=== PATIENT | female | born 1965 | race Caucasian/White ===

== ENCOUNTER → 2018-08-23 07:13 | Outpatient (CLI) | payer OTHER, SELFPAY ==
[2018-08-23 08:38] LABS: Add Manual Diff / Slide Review NO; Basophils Percent Auto 2.1 % (0-2); Eosinophils Percent Auto 4.8 % (2-4); Hematocrit 41.7 % (36-46); Hemoglobin 14.4 g/dL (12.0-16.0); Lymphocytes Percent Auto 27.4 % (25-40); Mean Corpuscular HGB Conc 34.6 % (30-36); Mean Corpuscular Hemoglobin 32.7 PG (26-34); Mean Corpuscular Volume 94.6 fL (80-100); Neutrophils Absolute Auto 2100 /uL (3000-5900); Neutrophils Percent Auto 55.7 % (50-75); Platelet Count 171 X10^3/uL (150-400); Red Blood Cell Count 4.41 X10^6/uL (4.0-5.2); Red Cell Distribution Width 11.9 % (11.6-14.8); White Blood Cell Count 3.7 X10^3/uL (4.5-11.0)
[2018-08-23 09:13] LABS: Alanine Aminotransferase 29 IU/L (9-52); Albumin 4.4 g/dL (3.5-5.0); Albumin Globulin Ratio 1.6 (1.0-2.8); Alkaline Phosphatase 80 U/L (38-126); Aspartate Aminotransferase 20 IU/L (14-36); BUN Creatinine Ratio 21.3 (6-22); Bilirubin Total 0.5 mg/dL (0.2-1.3); Blood Urea Nitrogen 17 mg/dL (7-17); Calcium 9.5 mg/dL (8.4-10.2); Carbon Dioxide 29 mmol/L (22-32); Chloride 100 mmol/L (98-107); Cholesterol 190 mg/dL (140-199); Estimated Glomerular Filt Rate > 60.0 mL/min (>60); Globulin 2.8 g/dL (1.7-4.1); Glucose 89 mg/dL (70-100); HDL Cholesterol 48 mg/dL (40-60); HEMOLYSIS < 15 (0-50); LDL Cholesterol Calculated 109 mg/dL (<100); Potassium 3.9 mmol/L (3.4-5.1); Sodium 144 mmol/L (137-145); Total Protein 7.2 g/dL (6.3-8.2); Triglycerides 164 mg/dL (35-150)
[2018-08-23 09:38] LABS: Thyroid Stimulating Hormone 1.38 uIU/mL (0.47-4.68)
== END ==
PROVIDERS: PCP Internal Medicine; Visit Provider Internal Medicine
DX: D70.9 Neutropenia, unspecified (principal); E78.5 Hyperlipidemia, unspecified
CPT/HCPCS: 36415; 80053; 80061; 84443; 85025

== ENCOUNTER → 2019-08-24 17:16 | Outpatient (CLI) | payer OTHER, SELFPAY ==
--- NOTE | 2019-08-24 | DI.MG.S_ITS ---
BILATERAL DIGITAL SCREENING MAMMOGRAM 3D/2D WITH CAD: 08/24/2019 CLINICAL: Routine screening. Comparison is made to exams dated: 05/15/2016 mammogram, 05/11/2016 mammogram, and 12/28/2013 mammogram - [facility]. The tissue of both breasts is heterogeneously dense. This may lower the sensitivity of mammography. Current study was also evaluated with a Computer Aided Detection (CAD) system. There is an oval high density mass with a circumscribed margin in the left breast posterior depth superior region seen on the mediolateral oblique view only. No other significant masses, calcifications, or other findings are seen in either breast. IMPRESSION: INCOMPLETE: NEEDS ADDITIONAL IMAGING EVALUATION The oval high density mass in the left breast is indeterminate. Mediolateral and spot compression views as well as additional views with possible ultrasound are recommended. This exam was interpreted at Station ID: [id number]. NOTE: For mammograms, a report in lay terms will be sent to the patient. Approximately 15% of breast malignancies will not be visualized mammographically. In the management of a palpable breast mass, a negative mammogram must not discourage biopsy of a clinically suspicious lesion. Electronically Signed By: Darryl amor/kimberly:08/25/2019 07:38:16 letter sent: Additional Imaging Needed ACR BI-RADS Category 0: Incomplete [id number]
== END ==
PROVIDERS: PCP Internal Medicine; Visit Provider Internal Medicine
DX: Z12.31 Encounter for screening mammogram for malignant neoplasm of breast (principal)
CPT/HCPCS: 77063; 77067

== ENCOUNTER → 2019-10-02 09:35 | Outpatient (CLI) | payer OTHER, SELFPAY ==
--- NOTE | 2019-10-02 | DI.MG.S_ITS ---
UNILATERAL LEFT DIGITAL DIAGNOSTIC MAMMOGRAM 3D/2D WITH ADDITIONAL VIEWS: 10/02/2019 CLINICAL: Additional evaluation requested from prior study. Comparison is made to exams dated: 08/24/2019 mammogram, 05/15/2016 mammogram, and 05/11/2016 mammogram - [facility]. The tissue of left breast is heterogeneously dense. This may lower the sensitivity of mammography. There is a 2.4 cm oval equal density asymmetry with a circumscribed margin in the left breast posterior depth superior region seen on the mediolateral oblique view only. No other significant masses or calcifications are seen in the breast. IMPRESSION: INCOMPLETE: NEEDS ADDITIONAL IMAGING EVALUATION The 2.4 cm oval equal density asymmetry in the left breast is indeterminate. An ultrasound is recommended. This exam was interpreted at Station ID: [id number]. NOTE: For mammograms, a report in lay terms will be sent to the patient. Approximately 15% of breast malignancies will not be visualized mammographically. In the management of a palpable breast mass, a negative mammogram must not discourage biopsy of a clinically suspicious lesion. Electronically Signed By: Darryl amor/kimberly:10/02/2019 10:12:25 ACR BI-RADS Category 0: Incomplete [id number]
--- NOTE | 2019-10-02 | DI.US.S_ITS ---
ULTRASOUND OF LEFT AXILLA: 10/02/2019 CLINICAL: Patient returns today to evaluate a density in the left breast. Comparison is made to exams dated: 10/02/2019 mammogram, 08/24/2019 mammogram, 05/15/2016 ultrasound, 05/15/2016 mammogram, 05/11/2016 mammogram, and 12/28/2013 mammogram - [facility]. Color flow and real-time ultrasound of the left axilla were performed on the areas of interest. There is a 1.8 cm x 1.2 cm x 3.5 cm oval cyst with debris with a septated internal wall extending to the skin in the left axilla. This oval cyst with debris is hypoechoic with a well-defined boundary, internal echoes, and posterior acoustic enhancement. There is suggestion of a small tract extending to the skin. This correlates as palpated and with mammography findings. Color flow imaging demonstrates that there is no vascularity present. IMPRESSION: PROBABLY BENIGN The 1.8 cm x 1.2 cm x 3.5 cm oval cyst with debris within the skin is consistent with a complicated cyst and likely represents a sebaceous cyst. The finding is probably benign. A follow-up ultrasound in 6 months is recommended. A follow-up ultrasound in 6 months is recommended to demonstrate stability. This exam was interpreted at Station ID: [id number]. Electronically Signed By: Darryl amor/:10/02/2019 11:39:23 letter sent: Followup Recommended Ultrasound BI-RADS: 3 Probably benign
== END ==
PROVIDERS: PCP Internal Medicine; Visit Provider Internal Medicine
DX: R92.8 Other abnormal and inconclusive findings on diagnostic imaging of breast (principal); N60.02 Solitary cyst of left breast
CPT/HCPCS: 76642; 77065; G0279

== ENCOUNTER → 2020-07-12 13:03 | Outpatient (CLI) | payer OTHER, SELFPAY ==
--- NOTE | 2020-07-12 | DI.US.S_ITS ---
ULTRASOUND OF LEFT BREAST AND AXILLA: 07/12/2020 CLINICAL: 6 month follow-up of cyst. Comparison is made to exams dated: 10/02/2019 ultrasound, 10/02/2019 mammogram, 08/24/2019 mammogram, 05/15/2016 ultrasound, 05/15/2016 mammogram, and 05/11/2016 mammogram - [facility]. Color flow and real-time ultrasound of the left breast axilla were performed. Vega scale images of the real-time examination were reviewed. There is a benign 1.8 cm x 1.2 cm x 3.5 cm oval cyst with debris within the skin of the left axillary tail. This oval cyst with debris is hypoechoic with a well-defined boundary and posterior acoustic enhancement. This correlates as palpated and with mammography findings. Color flow imaging demonstrates that there is no vascularity present. IMPRESSION: BENIGN There is no sonographic evidence of malignancy. The 1.8 cm x 1.2 cm x 3.5 cm oval cyst with debris within the skin most likely is a sebaceous cyst and is benign. Return to annual screening schedule is recommended. This exam was interpreted at Station ID: [id number]. Electronically Signed By: Jose David Cuevas M.D., jr/kimberly:07/12/2020 13:59:54 letter sent: Normal Exam Ultrasound BI-RADS: 2 Benign
== END ==
PROVIDERS: PCP Internal Medicine; Referring Provider Internal Medicine; Visit Provider Internal Medicine
DX: R92.8 Other abnormal and inconclusive findings on diagnostic imaging of breast (principal); N60.02 Solitary cyst of left breast
CPT/HCPCS: 76642

== ENCOUNTER → 2020-09-23 14:11 | Outpatient (CLI) | payer OTHER, SELFPAY ==
[2020-09-23 14:39] LABS: COVID19 -Nasal RAPID Negative (Negative)
== END ==
PROVIDERS: Visit Provider Surgery
DX: Z01.812 Encounter for preprocedural laboratory examination (principal); Z20.828 Contact with and (suspected) exposure to other viral communicable diseases
CPT/HCPCS: 87635; C9803

== ENCOUNTER 2020-09-24 07:52 | Day surgery (SDC) | payer OTHER, SELFPAY ==
[2020-09-24] VITALS (7 sets, daily range): BP systolic 104–135; BP diastolic 68–81; PULSE 61–88; RESP 9–18; TEMP 36.3–36.9; O2SAT 94–100
--- NOTE | 2020-09-24 | PATH_ITS ---
[facility] Accession Number: [id number] . 01 Material submitted: . axilla - LEFT AXILLARY MASS . 01 Diagnosis: Skin and Soft Tissue, Left Axillary, Excision: Benign hidrocystoma. Negative for significant atypia and malignancy. MRV 09/30/2020 1504 Local . 01 Comment: This case is also reviewed by dermatopathologist, Dr. Alisson Vaughn, who concurs with the given interpretation. . 01 Electronically signed: . Mandy Morrison MD, Pathologist NPI- [id number] . 01 Gross description: . Received in formalin, labeled with the patient's name and left axillary mass, is a 13-gram, 4.0 x 1.5 x 0.3 cm nino-guaman skin ellipse with attached 5.2 x 2.5 x 2.5 cm fatty lobulated cutaneous tissue, resection margin inked black. Sectioning reveals a 3.8 x 1.2 x 1.0 cm smoothly aligned uniloculated cystic space beneath the epidermal surface, with no contents identified and no solid components within. Sections of the cyst in total are submitted in blocks A1-A8. ([id number]) ([id number]) /MRV 09/30/2020 1505 Local . 01 Pathologist provided ICD-10: D23.9 . 01 CPT . 803775 Performed at: [address] [facility] [address], [place], [place] [id number] MD Darryl Cardenas MD Phone: [phone]
[2020-09-24] MEDS: ACETAMINOPHEN 325 MG TABLET 975 MG PO (08:08)
[2020-09-24] MEDS: LACTATED RINGERS 1,000 ML 100 ML IV (08:10)
[2020-09-24] MEDS: SCOPOLAMINE 1 PATCH TOP (08:10)
--- NOTE | 2020-09-24 08:32 | SUR.OPER ---
Supine on padded OR bed, head on pillow, arms secured on padded arm boards at <90 degrees abduction, legs uncrossed, safety belt at thigh, tape over blanket over lower legs.
--- NOTE | 2020-09-24 08:40 | PM.PREOP ---
Pre-operative Note COVID-19 COVID-19 status: Negative Interval Note History & Physical reviewed/Exam performed by Physician: Yes Changes to H&P: No
[2020-09-24] MEDS: CEFAZOLIN 2 GM/100 ML FROZ.PIGGY IV (08:52)
[2020-09-24] MEDS: BUPIVACAINE 0.25% (PF) VIAL 30 ML INJ (08:58)
--- NOTE | 2020-09-24 09:29 | PM.OP.1 ---
Operative Date/Time/Diagnoses Date of procedure: 09/24/20 Time of procedure: 09:29 Pre-op diagnosis: Left axillary mass Post-op diagnosis: same Procedure & Clinicians Procedure: Excision left axillary mass Same procedure as scheduled: Yes Indications: 55-year-old woman with a painful left axillary mass here for elective excision Surgeon: Ozzie Myers Anesthesia Type: General Operative Notes Findings: Chronic left axillary mass likely cystic Specimen(s): other (Left axillary mass) Estimated Blood Loss (mL): 10 Procedure in detail: Patient was brought to the operating room placed supine on the table. Bilateral lower extremity compression devices were applied. General anesthesia was induced she was intubated with an LMA. She was prepped and draped in sterile fashion. She received Ancef prior to skin incision. Time-out was performed. An elliptical incision around the axillary mass which was superficial in nature. The mass was dissected out of the subcutaneous tissues. Its appearance was of was that of chronic cystic disease. Hemostasis was achieved the wound was closed with interrupted Vicryl suture for the subcutaneous layer skin closed in a running fashion with 4-0 Monocryl followed by the application of Dermabond and Steri-Strips. She was extubated and transferred to recovery room in stable condition Complications: none Post-operative Condition: stable Disposition: same day surgery
[2020-09-24] MEDS: OXYCODONE IR 5 MG TABLET PO (09:48)
== END 2020-09-24 10:17 | disposition home or self-care (01) ==
PROVIDERS: PCP Internal Medicine; Referring Provider Surgery; Visit Provider Surgery
PROC: (CPT 11406; principal; 2020-09-24 09:15)
DX: D23.5 Other benign neoplasm of skin of trunk (principal)
CPT/HCPCS: 11406; J0690; J1100; J1885; J2250; J2405; J2704

== ENCOUNTER → 2020-10-17 09:22 | Outpatient (CLI) | payer OTHER, SELFPAY ==
[2020-10-17] MEDS: COVID-19 VACC(MODERNA-1)/PF 100 MCG/0.5 ML VIAL IM (09:29)
== END ==
PROVIDERS: PCP Internal Medicine; Visit Provider Internal Medicine
DX: Z23 Encounter for immunization (principal)
CPT/HCPCS: 0011A; 91301

== ENCOUNTER → 2020-11-13 09:17 | Outpatient (CLI) | payer OTHER, SELFPAY ==
[2020-11-13] MEDS: COVID-19 VACC #2, MRNA(MOD) 100 MCG/0.5 ML VIAL IM (09:24)
== END ==
PROVIDERS: PCP Internal Medicine; Visit Provider Internal Medicine
DX: Z23 Encounter for immunization (principal)
CPT/HCPCS: 0012A; 91301

== ENCOUNTER → 2020-12-19 15:31 | Outpatient (CLI) | payer OTHER, SELFPAY ==
[2020-12-19 15:57] LABS: COVID19 -Nasal RAPID Negative (Negative)
== END ==
PROVIDERS: PCP Internal Medicine; Visit Provider Nurse Practitioner
DX: Z20.822 Contact with and (suspected) exposure to COVID-19 (principal)
CPT/HCPCS: 87635

== ENCOUNTER 2020-12-20 12:45 | Day surgery (SDC) | payer OTHER, SELFPAY ==
--- NOTE | 2020-12-20 08:11 | PM.HP.1 ---
History of Present Illness History of Present Illness Date Patient Seen: 12/20/20 Chief complaint: [facility] [place] [place] Narrative: 54 Years Old Female seen today for consideration of a screening colonoscopy. She has a history of colon polyps. Last colonoscopy was 5 years ago, on 5-year recall. There have been no lower GI symptoms suggesting disease such as change in bowel habits, bleeding, abdominal pain or anemia. There's been no family history of colon cancer or colon polyps. Overall health issues have been stable, including no major cardiac events for at least 6 weeks. Past Medical History: Hx colon polyps Pregnancies:2 Live Births:2 Living Children: 2 Gestational Diabetes - both pregnancies Hay Fever Hx left breast cyst in axillary tail - 05/15/16 Hx scattered fibroglandular elements of left breast - 05/15/16 Postmenopausal Headache Past Surgical History: tubal ligation - 2002 Colonoscopy with polypectomy - 02/09/2014 Shoulder surgery - 08/16/2018 Family History: Father: - Stroke Mother: Stephani Michaud - Diabetes Siblings: Brother: no problems noted Sister: no problems noted Social History: Marital Status: Mamadou Valdez (10/11/67) - Loss Prevention Leader - okay to speak to Children: Jose David Valdez (1992), Kenneth Valdez (2000) Occupation: Supervisor Case Loading/Billing - [employer] Household Members: 4 Education: Year quit smokin Patient History Medical History Chicken pox Colon polyps (02/09/14) Gestational diabetes Hayfever History of heavy periods (2013) Measles Surgical History Anesthesia History of colonoscopy with polypectomy (02/09/14) History of shoulder surgery (08/16/18) Status post tubal ligation (2002) Family & Social History Family History Father Stroke Grandmother Age: 102 Type 2 diabetes mellitus Heart disease Brother No problems noted. Mother Diabetes mellitus Sister No problems noted. Social History: household members spouse,children Tobacco & Substance use: Smoking Status Former smoker alcohol intake current alcohol intake frequency a few times a month Substance Use Type does not use Meds Home Medications and Allergies Home Medications Medication Instructions Recorded Confirmed Type acetaminophen [Tylenol] 650 mg PO QID PRN #60 cap 09/24/20 10/16/20 Rx ibuprofen 200 mg PO Q6H PRN #60 cap 09/24/20 10/16/20 Rx Allergies Allergy/AdvReac Type Severity Reaction Status Date / Time silver Allergy Mild SKIN RASH Verified 10/16/20 09:31 [From TEGADERM AG MESH] AND IRRITATION Review of Systems Review of Systems ROS: Yes All systems reviewed with the patient and are negative except as otherwise documented Exam Narrative Exam Narrative: General: Alert and oriented, appearing stated age and in no acute distress. Head: Head normocephalic/atraumatic. Neck: Neck soft and supple, no lymphadenopathy. Lungs: Clear to auscultation bilaterally, no wheezes, rhonchi or rales. Heart: normal rate and regular rhythm, no murmurs, rubs, gallops, or clicks, Abdomen: abdomen soft and non-tender without masses, organomegaly, or abdominal wall hernias, bowel sounds positive. Skin: intact without suspicious lesions or rashes, Psych: alert and cooperative; normal mood and affect; normal attention span and concentration; cognition, remote and recent memory appear to be intact, Assessment & Plan Assessment & Plan narrative: 1. History of colon polyps 2. Screening for colon cancer Plan for colonoscopy. The nature and character of the procedure as well as anticipated results were discussed. The possibility of not completing the procedure was also discussed. Possible complications including aspiration pneumonia, bleeding, perforation and reaction to medications either for sedation or preparation and missed lesions were discussed. Questions were answered and proceeding to the colonoscopy was elected. Informed consent signed. I sincerely appreciate the referral allowing me to participate in this patient's care. Please contact me with any questions or concerns.
--- NOTE | 2020-12-20 08:12 | PM.OP.ENDO ---
Operative Date/Time/Diagnoses Date of procedure: 12/20/20 Procedure Notes SCOAP/Timeout: 1:47 p.m. Procedure in detail: ENDOSCOPIST: Linda Nieves MD Sedation RN: Rhonda Shetty RN Sedation start time: 1:48 p.m. Sedation end time: 2:08 p.m. PROCEDURE: Colonoscopy INDICATIONS: 1. History of colon polyps 2. Screening for colon cancer MEDICATION: Levsin 0.125 mg sublingual, incremental doses of Versed and fentanyl until appropriate level sedation achieved. ASA CLASS: 1 CECAL WITHDRAWAL TIME: 6 minutes COMPLICATIONS: None. EXTENT OF PROCEDURE: Cecum. QUALITY OF PREP: Good with portions of liquid stool. PROCEDURE: Prior to insertion of the colonoscope, a digital rectal examination was accomplished with circumferential palpation of the distal rectal mucosa without significant findings being noted. The high-definition colonoscope was passed into the rectum in the usual fashion and advanced over to the cecum without difficulty. The ileocecal valve, appendiceal stoma, and medial wall all could be inspected and no abnormalities were seen. ASCENDING COLON: As the colonoscope was withdrawn, care was taken to expose and inspect the haustral folds and no abnormalities were seen. HEPATIC FLEXURE: Normal, no polyps, diverticula or other abnormalities. TRANSVERSE COLON: Normal, no polyps, diverticula or other abnormalities. DESCENDING COLON: Normal, no polyps, diverticula or other abnormalities. SIGMOID COLON: Normal, no polyps, diverticula or other abnormalities. RECTUM: Normal. J maneuver was produced. There was no significant perianal disease. The J maneuver was broken. The remainder of the rectum was inspected and there was no external hemorrhoid disease. The scope was withdrawn. IMPRESSION: 1. Normal colonoscopy PLAN: 1. Secondary to history of colon polyps, repeat colonoscopy in 5 years. The possibility of a missed lesion including a malignancy has been discussed with the patient previously. Potential alarm symptoms have been discussed and should be reported immediately.
[2020-12-20 13:03] VITALS: BP 121/78; PULSE 80; RESP 13; TEMP 37.7; O2SAT 98; BMI 28.8
[2020-12-20] MEDS: LACTATED RINGERS 1,000 ML 200 ML IV (13:18)
[2020-12-20] MEDS: HYOSCYAMINE 0.125 MG TABLET PO (13:43)
[2020-12-20] MEDS: MIDAZOLAM 5 MG/5 ML VIAL IV (13:58)
[2020-12-20] MEDS: fentaNYL 250 MCG/5 ML INJ IV (13:58)
[2020-12-20 14:13] VITALS: BP 125/68; PULSE 93; RESP 14; TEMP 36.5; O2SAT 95
[2020-12-20 14:18] VITALS: BP 124/81; PULSE 100; RESP 18; O2SAT 96
[2020-12-20 14:23] VITALS: BP 128/73; PULSE 99; RESP 16; TEMP 36.8; O2SAT 96
[2020-12-20 14:29] VITALS: BP 124/73; PULSE 86; RESP 16; O2SAT 97
--- NOTE | 2020-12-20 14:37 | SUR.PHASEII ---
pt up and getting dressed. No complaints voiced. Pt had 2 cups of cranberry juice. Without nausea and vomiting.
== END 2020-12-20 14:40 | disposition home or self-care (01) ==
PROVIDERS: PCP Internal Medicine; Referring Provider Student in an Organized Health Care Education/Training Program; Visit Provider Student in an Organized Health Care Education/Training Program
PROC: 0DJD8ZZ Inspection of Lower Intestinal Tract, Via Natural or Artificial Opening Endoscopic (ICD-10-PCS; CPT 45378; principal; 2020-12-20 13:45)
DX: Z12.11 Encounter for screening for malignant neoplasm of colon (principal); Z86.010 Personal history of colon polyps
CPT/HCPCS: 45378; J2250; J3010

== ENCOUNTER → 2021-01-27 16:03 | Outpatient (CLI) | payer OTHER, SELFPAY ==
--- NOTE | 2021-01-27 16:05 | DI.RAD.S_ITS ---
PROCEDURE: XR KNEE RT 3V INDICATIONS: RIGHT KNEE PAIN TECHNIQUE: 3 views of the knee were acquired. COMPARISON: None. FINDINGS: Bones: No fractures or dislocations. No suspicious bony lesions. Soft tissues: No joint effusion. No suspicious soft tissue calcifications. IMPRESSION: No trauma found. Dictated by: Horacio Staley M.D. on 01/27/2021 at 17:42 Approved by: Horacio Staley M.D. on 01/27/2021 at 17:42
== END ==
PROVIDERS: PCP Internal Medicine; Referring Provider Internal Medicine; Visit Provider Internal Medicine
DX: M25.561 Pain in right knee (principal)
CPT/HCPCS: 73562

== ENCOUNTER → 2021-08-28 13:18 | Outpatient (CLI) | payer OTHER, SELFPAY | PROVIDERS: PCP Internal Medicine; Referring Provider Internal Medicine; Visit Provider Internal Medicine | DX: Z23 Encounter for immunization (principal) | CPT/HCPCS: 90471; 90686 ==

== ENCOUNTER → 2021-10-13 15:49 | Outpatient (CLI) | payer OTHER, SELFPAY ==
[2021-10-13 19:17] LABS: COVID19 -Nasal RAPID POSITIVE (Negative)
== END ==
PROVIDERS: PCP Internal Medicine; Referring Provider Physician Assistant; Visit Provider Physician Assistant
DX: U07.1 COVID-19 (principal); Z20.822 Contact with and (suspected) exposure to COVID-19; R05.9 Cough, unspecified
CPT/HCPCS: 87635

== ENCOUNTER → 2022-12-16 07:32 | Outpatient (CLI) | payer OTHER, SELFPAY ==
--- NOTE | 2022-12-16 | DI.RAD.S_ITS ---
PROCEDURE: XR KNEE LT 3V INDICATIONS: L KNEE INJURY TECHNIQUE: 3 views of the knee were acquired. COMPARISON: None. FINDINGS: Bones: No fractures or dislocations. No suspicious bony lesions. Mild to moderate medial compartment joint space narrowing Soft tissues: No joint effusion. No suspicious soft tissue calcifications. IMPRESSION: Hysz-vw-grebidts medial compartment joint space narrowing Approved by: Rodolfo Mccullough M.D. on 12/16/2022 at 13:37
== END ==
PROVIDERS: PCP Internal Medicine; Referring Provider Internal Medicine; Visit Provider Internal Medicine
DX: S80.912A Unspecified superficial injury of left knee, initial encounter (principal); X58.XXXA Exposure to other specified factors, initial encounter
CPT/HCPCS: 73562

== ENCOUNTER → 2023-04-19 12:54 | Outpatient (CLI) | payer OTHER, SELFPAY ==
--- NOTE | 2023-04-19 | DI.US.S_ITS ---
PROCEDURE: US PERIPH VENOUS LOW EXTREM LT INDICATIONS: CALF PAIN LLE TECHNIQUE: Real-time imaging, as well as color and pulse Doppler interrogation, were performed of the lower extremity deep veins from the inguinal ligament to the popliteal fossa. COMPARISON: None. FINDINGS: The common femoral, femoral and popliteal veins are normally compressible, and free of intraluminal thrombus. Color and pulse Doppler demonstrate normal phasic intraluminal flow. There is normal augmentation response to distal compression maneuver. Edema is noted within the lower left extremity from the knee to the ankle. IMPRESSION: No deep vein thrombosis of the left lower extremity. Dictated by: Cherie Gonzáles M.D. on 04/19/2023 at 14:35 Approved by: Cherie Gonzáles M.D. on 04/19/2023 at 14:36
== END ==
PROVIDERS: PCP Internal Medicine; Referring Provider Physician Assistant Medical; Visit Provider Physician Assistant Medical
DX: M79.662 Pain in left lower leg (principal); R60.0 Localized edema
CPT/HCPCS: 93971

== ENCOUNTER → 2023-04-25 09:40 | Outpatient (CLI) | payer OTHER, SELFPAY ==
--- NOTE | 2023-04-25 09:41 | DI.MRI.S_ITS ---
PROCEDURE: MR KNEE LT WO CON INDICATIONS: Tear of medial meniscus, current injury, left knee TECHNIQUE: Noncontrast sagittal PD fast spin echo and T2 fast spin echo with fat saturation, sagittal 3-D FLASH with fat saturation; coronal T1 spin echo and PD fast spin echo with fat saturation, and axial PD fast spin echo with fat saturation through the knee. COMPARISON: [facility], US, US PERIPH VENOUS LOW EXTREM LT, 04/19/2023, 13:01. [facility], CR, XR KNEE LT 3V, 12/16/2022, 7:44. FINDINGS: Image quality: Excellent. Menisci: There is a complex tear involving the body of the medial meniscus. There is also horizontal tear involving the anterior horn and posterior horn of the medial meniscus. There is tear of the anterior root of the lateral meniscus. The meniscal root ligaments appear intact. Cruciate ligaments: The anterior and posterior cruciate ligaments appear intact. Medial structures: There is grade 2 sprain of the proximal medial collateral ligament. The posterior oblique ligament, semimembranosus tendon insertions, oblique popliteal ligament, and meniscocapsular junction appear intact. Visualized portions of the pes anserinus tendons appear normal. No abnormal bursal fluid. Lateral structures: The lateral collateral ligament, long and short heads of the biceps femoris tendon appear intact. The popliteus tendon appears normal; the popliteofibular ligament appears intact. The posterosuperior and anteroinferior popliteomeniscal fascicles appear intact. The arcuate and fabellofibular ligaments appear intact, on either side of the lateral inferior geniculate artery. Iliotibial band appears normal. Anterior structures: There is partial tear/contusion of medial patellar retinaculum. The quadriceps and patellar tendons appear intact. There is moderate quadriceps tendinitis and mild patellar tendinitis. Lateral tilt of patella. No femoral trochlear dysplasia or ventral trochlear prominence. No edema in the infrapatellar fat pad. Bones and cartilage: No bone marrow contusions or fractures. There is cartilage thinning and fibrillation, most pronounced and msztfsid-mm-bjocty in the medial femorotibial compartment. There is subchondral edema in the medial femoral condyle and medial patella. Joint space: There is moderate knee joint effusion. There is a large complex popliteal cyst. Normal appearing synovial plicae are incidentally noted. IMPRESSION: 1. Medial meniscal tear. 2. Tear of the anterior root of the lateral meniscus. 3. Grade 2 sprain of the proximal MCL. 4. Partial tear/contusion of the medial patellar retinaculum. 5. Qgdrkywf-tv-eiieyb cartilage thinning and degeneration in the medial femorotibial compartment with associated subchondral edema in the medial femoral condyle and medial tibial plateau. 6. A large complex popliteal cyst. 7. Moderate knee joint effusion. Dictated by: Geremias Gonzalez M.D. on 04/26/2023 at 10:19 Approved by: Geremias Gonzalez M.D. on 04/26/2023 at 10:35
== END ==
PROVIDERS: PCP Internal Medicine; Referring Provider Physician Assistant Medical; Visit Provider Physician Assistant Medical
DX: S83.232A Complex tear of medial meniscus, current injury, left knee, initial encounter (principal); S83.282A Other tear of lateral meniscus, current injury, left knee, initial encounter; S83.412A Sprain of medial collateral ligament of left knee, initial encounter; S76.112A Strain of left quadriceps muscle, fascia and tendon, initial encounter; M71.22 Synovial cyst of popliteal space [Baker], left knee; M25.462 Effusion, left knee
CPT/HCPCS: 73721

== ENCOUNTER → 2023-06-02 07:02 | Outpatient (CLI) | payer OTHER, SELFPAY ==
[2023-06-02 07:39] LABS: Appearance Urine UA CLEAR; Bilirubin Urine UA NEGATIVE (NEGATIVE); Color Urine UA YELLOW; Glucose Urine UA NEGATIVE (Negative); Ketones Urine UA NEGATIVE (NEGATIVE); Leukocyte Esterase Urine UA TRACE (NEGATIVE); Nitrite Urine UA NEGATIVE (Negative); Occult Blood Urine UA NEGATIVE (Negative); Protein Urine UA NEGATIVE (Negative); Urobilinogen Urine UA 0.2 E.U./dL (0.2)
[2023-06-02 07:51] LABS: RBC Urine None Seen (0-5/HPF)
[2023-06-02 07:52] LABS: Bacteria Urine Occasional (0-1); Culture Indicated Urine Specimen Cultured; Squamous Epithelial Cell Urine 1-5 /HPF (0-5/HPF); WBC Urine 1-5/HPF (0-5/HPF)
[2023-06-02 07:55] LABS: Add Manual Diff / Slide Review NO; Basophils Absolute Auto 100 /uL (0-100); Basophils Percent Auto 1.9 % (0-2); Eosinophils Absolute Auto 200 /uL (0-450); Eosinophils Percent Auto 6.1 % (2-4); Hematocrit 41.1 % (36-46); Hemoglobin 14.2 g/dL (12.0-16.0); Lymphocytes Absolute Auto 1000 /uL (1100-4500); Lymphocytes Percent Auto 28.8 % (25-40); Mean Corpuscular HGB Conc 34.6 % (30-36); Mean Corpuscular Hemoglobin 32.6 PG (26-34); Mean Corpuscular Volume 94.2 fL (80-100); Monocytes Absolute Auto 400 /uL (0-900); Monocytes Percent Auto 10.2 % (3-14); Neutrophils Absolute Auto 1800 /uL (1500-7000); Platelet Count 156 X10^3/uL (150-400); Red Blood Cell Count 4.36 X10^6/uL (4.0-5.2); Red Cell Distribution Width 12.5 % (11.6-14.8); White Blood Cell Count 3.5 X10^3/uL (4.5-11.0)
[2023-06-02 08:17] LABS: Hemoglobin A1C% w Est Avg Glu 4.9 % (4.0-6.0)
[2023-06-02 08:22] LABS: BUN Creatinine Ratio 17.1 (6-22); Blood Urea Nitrogen 13 mg/dL (7-17); Calcium 9.4 mg/dL (8.4-10.2); Carbon Dioxide 27 mmol/L (22-32); Chloride 103 mmol/L (98-107); Estimated Glomerular Filt Rate > 60 mL/min (>60); Glucose 129 mg/dL (70-100); HEMOLYSIS < 15 (0-50); Potassium 4.1 mmol/L (3.4-5.1); Sodium 138 mmol/L (137-145)
== END ==
PROVIDERS: PCP Internal Medicine; Referring Provider Orthopaedic Surgery; Visit Provider Orthopaedic Surgery
DX: Z01.818 Encounter for other preprocedural examination (principal); Z01.812 Encounter for preprocedural laboratory examination; R73.9 Hyperglycemia, unspecified; N39.0 Urinary tract infection, site not specified
CPT/HCPCS: 36415; 80048; 81001; 83036; 85025; 87086; 93005

== ENCOUNTER → 2023-08-20 08:04 | Outpatient (CLI) | payer OTHER, SELFPAY | PROVIDERS: PCP Internal Medicine; Referring Provider Family Medicine; Visit Provider Family Medicine | DX: Z23 Encounter for immunization (principal) | CPT/HCPCS: 90471; 90686 ==

== ENCOUNTER → 2024-07-19 19:41 | Outpatient (CLI) | payer OTHER, SELFPAY | PROVIDERS: PCP Internal Medicine; Referring Provider Internal Medicine; Visit Provider Internal Medicine | DX: Z23 Encounter for immunization (principal) | CPT/HCPCS: 90471; 90656 ==

== ENCOUNTER → 2024-09-15 17:36 | Outpatient (CLI) | payer OTHER, SELFPAY ==
--- NOTE | 2024-09-15 | DI.MG.S_ITS ---
BILATERAL DIGITAL SCREENING MAMMOGRAM 3D/2D WITH CAD: 09/15/2024 Comparison is made to exams dated: 08/24/2019 mammogram, 05/11/2016 mammogram, and 12/28/2013 mammogram - [facility]. The breasts are heterogeneously dense, which may obscure small masses (category c / 51-75% glandular tissue). Current study was also evaluated with a Computer Aided Detection (CAD) system. No significant masses, calcifications, or other findings are seen in either breast. There has been no significant interval change. IMPRESSION: NEGATIVE There is no mammographic evidence of malignancy. A 1 year screening mammogram is recommended. Based on the Tyrer Cuzick model (a risk assessment model) the patient's lifetime risk is 11.5% and her 10 year risk is 4.9%. According to the ACR, ACS, and NCCN guidelines, an annual breast MRI exam along with mammogram is recommended if the patient's lifetime risk is 20% or greater. This exam was interpreted at Station ID: [id number]. NOTE: For mammograms, a report in lay terms will be sent to the patient. Approximately 15% of breast malignancies will not be visualized mammographically. In the management of a palpable breast mass, a negative mammogram must not discourage biopsy of a clinically suspicious lesion. Electronically Signed By: Delroy song/kimberly:09/18/2024 07:30:57 letter sent: Normal Exam ACR BI-RADS Category 1: Negative
== END ==
PROVIDERS: PCP Internal Medicine; Referring Provider Internal Medicine; Visit Provider Internal Medicine
DX: Z12.31 Encounter for screening mammogram for malignant neoplasm of breast (principal); R92.333 Mammographic heterogeneous density, bilateral breasts
CPT/HCPCS: 77063; 77067

== ENCOUNTER 2025-07-14 17:08 | Emergency (ER) | payer OTHER, SELFPAY ==
[2025-07-14] VITALS (25 sets, daily range): BP systolic 131–166; BP diastolic 65–80; PULSE 67–79; RESP 12–21; TEMP 36.9; O2SAT 93–100; BMI 25.7
--- NOTE | 2025-07-14 17:30 | DI.RAD.S_ITS ---
PROCEDURE: XR CHEST 1V INDICATIONS: Chest Pain TECHNIQUE: One view of the chest was acquired. COMPARISON: None. FINDINGS: Surgical changes and devices: None. Lungs and pleura: Lungs are clear. No pleural effusions or pneumothorax. Mediastinum: Mediastinal contours appear normal. Heart size is normal. Bones and chest wall: No suspicious bony lesions. Overlying soft tissues appear unremarkable. IMPRESSION: No acute cardiopulmonary abnormality is seen. Dictated by: John Cuevas M.D. on 07/14/2025 at 17:31 Approved by: John Cuevas M.D. on 07/14/2025 at 17:31
[2025-07-14] MEDS: ASPIRIN 81 MG CHEW TAB 324 MG PO (17:33)
--- NOTE | 2025-07-14 17:40 | EKG_ITS ---
[facility] [address] [place] [address] Test Date: 2025-07-14 Pat Name: Felicia Valdez Department: [facility] Room: Gender: Female Hi Ranger Operator: ROSEANNE : 1965 Requested By: Order Number: [id number] Reading MD: Juaquin Bledsoe Measurements Intervals [place] Rate: 80 P: 53 [place]: 180 QRS: 18 QRSD: 80 T: 39 QT: 390 QTc: 449 Interpretive Statements Normal sinus rhythm Electronically Signed On 07-18-2025 8:00:13 PDT by Juaquin Bledsoe
[2025-07-14 17:51] LABS: Add Manual Diff / Slide Review NO; Hematocrit 41.9 % (36-46); Hemoglobin 14.8 g/dL (12.0-16.0); Lymphocytes Absolute Auto 1500 /uL (1100-4500); Mean Corpuscular HGB Conc 35.2 % (30-36); Mean Corpuscular Hemoglobin 32.2 PG (26-34); Mean Corpuscular Volume 91.4 fL (80-100); Platelet Count 165 X10^3/uL (150-400)
[2025-07-14 17:57] LABS: INR 1.1 (0.9-1.3); Prothrombin Time 11.9 SECONDS (9.4-12.5)
[2025-07-14 17:59] LABS: PTT Partial Thromboplastin Tim 31 SECONDS (25.1-36.5)
[2025-07-14 18:00] LABS: Alanine Aminotransferase 67 IU/L (<35); Albumin 4.6 g/dL (3.5-5.0); Albumin Globulin Ratio 1.7 (1.0-2.8); Alkaline Phosphatase 96 U/L (38-126); Blood Urea Nitrogen 20 mg/dL (7-17); Calcium 9.5 mg/dL (8.4-10.2); Carbon Dioxide 26 mmol/L (22-32); Chloride 104 mmol/L (98-107); Creatine Kinase 39 U/L (30-135); Estimated Glomerular Filt Rate > 60 mL/min (>60); Globulin 2.7 g/dL (1.7-4.1); Glucose 112 mg/dL (70-99); HEMOLYSIS 16 (0-50); Lipase 167 U/L (23-300); Magnesium 1.9 mg/dL (1.6-2.3); Potassium 3.3 mmol/L (3.4-5.1); Sodium 139 mmol/L (137-145); Total Protein 7.3 g/dL (6.3-8.2)
--- NOTE | 2025-07-14 18:07 | ED_ITS ---
HPI - Chest Pain General Chief Complaint: Chest Pain Stated Complaint: indigestion x1 hour, mid back soreness, shaky Time Seen by Provider: 07/14/25 18:05 Source: patient Mode of arrival: Ambulatory Limitations: no limitations History of Present Illness HPI narrative: 59-year-old female with no known history of CAD, no previous provocative coronary testing, no history of known stomach acid reflux, was reading a book this evening and felt substernal chest discomfort, radiating to the back. No associated diaphoresis, nausea, vomiting. No radiation to either arm, nor to either leg. Denies cardiac risk factors of diabetes, hypertension, lipids, family history, though did smoke 20 years ago for about 20 years intermittently. No previous cardiac stress testing recalled. No recent cough, fevers, chills, new activities. Patient not worse with deep breathing or changes in position. Related Data Previous Rx's ?Medication ?Instructions ?Recorded acetaminophen 325 mg capsule 650 mg (2 x 325 mg) PO QI D PRN 09/24/20 (Tylenol) pain #60 caps ibuprofen 200 mg capsule 200 mg PO Q6H PRN pain #60 c aps 09/24/20 Allergies Allergy/AdvReac Type Severity Reaction Status Date / Time silver (From TEG[employer]ER[employer] Allergy Mild SKIN RASH Verified 07/17/25 15:47 MESH) AND IRRITATION Patient History Medical History Chicken pox Colon polyps (02/09/14) Gestational diabetes Hayfever History of heavy periods (2013) Measles Surgical History Anesthesia History of colonoscopy with polypectomy (02/09/14) History of shoulder surgery (08/16/18) Status post tubal ligation (2002) Family History Father Stroke Grandmother Age: 102 Type 2 diabetes mellitus Heart disease Brother No problems noted. Mother Diabetes mellitus Sister No problems noted. Social History marital status: household members: spouse and children occupational status: employed alcohol intake: current substance use type: does not use Smoking Status: Never smoker alcohol intake frequency: a few times a month Exam Narrative Exam Narrative: GENERAL: Well-developed patient, in mild distress. HEAD: Atraumatic. Normocephalic. EYES: Pupils equal round and reactive. Extraocular motions intact. No scleral icterus. No injection or drainage. ENT: Nose without bleeding, purulent drainage. Throat without erythema, tonsillar hypertrophy or exudate. Airway patent. NECK: Trachea midline. Non tender CARDIOVASCULAR: Regular rate and rhythm without murmurs, gallops, or rubs. RESPIRATORY: Clear to auscultation. Breath sounds equal bilaterally. No wheezes, rales, or rhonchi. GASTROINTESTINAL: Abdomen soft, non-tender, nondistended. No RUQ or epigastric tenderness with deep palpation, negative Muprhys sign, nondistended, bowel tones normal without rushes or tinkles, no obvious bruit EXTREMITIES: No edema or joint tenderness. BACK: Nontender without deformity or crepitance. No flank tenderness. NEURO: AOx3. Motor functions grossly nonfocal. SKIN: No rash or erythema of visible areas Initial Vital Signs Initial Vital Signs: Vital Signs Temperature 98.5 F 07/14/25 17:27 Pulse Rate 77 07/14/25 17:27 Respiratory Rate 18 07/14/25 17:27 Blood Pressure 166/80 H 07/14/25 17:27 Pulse Oximetry 100 07/14/25 17:27 Oxygen Delivery Method Room Air 07/14/25 17:27 Scores HEART Score Heart Score history: Slightly Suspicious Heart Score EKG: Normal Heart Score Age: 45-64 years old Heart Score risk factors: 1-2 risk factors Heart Score troponin: < or = to normal limit Heart Score Total: 2 Course Orders Ordered: Discontinued Medications Al Hydrox/Mg Hydrox/Simethicone (Mag Hydrox/Alum/Simeth 30 Ml Udc) 30 ml PO NOW ONE Stop: 07/14/25 19:19 Last Admin: 07/14/25 20:12 Dose: 30 ml Documented By: JOSE Aspirin (Aspirin 81 Mg Chew Tab) 324 mg PO NOW ONE Stop: 07/14/25 17:31 Last Admin: 07/14/25 17:33 Dose: 324 mg Documented By: MARIBEL Potassium Chloride (Potassium Chloride 20 Meq/15 Ml Udc) 40 meq PO NOW ONE Stop: 07/14/25 20:20 Last Admin: 07/14/25 20:50 Dose: 40 meq Documented By: RL Vital Signs Vital signs: Vital Signs - 8 hr 07/14/25 17:27 07/14/25 18:04 07/14/25 18:06 Temperature 98.5 F Pulse Rate 77 79 Respiratory Rate 18 Blood Pressure 166/80 H 145/75 H Pulse Oximetry 100 93 Oxygen Delivery Method Room Air 07/14/25 18:06 07/14/25 18:10 07/14/25 18:10 Temperature Pulse Rate 75 74 Respiratory Rate 18 19 Blood Pressure 142/68 H Pulse Oximetry 96 96 Oxygen Delivery Method 07/14/25 18:20 07/14/25 18:20 07/14/25 18:30 Temperature Pulse Rate 69 Respiratory Rate 13 Blood Pressure 136/69 142/70 H Pulse Oximetry 100 Oxygen Delivery Method 07/14/25 18:30 07/14/25 18:40 07/14/25 18:40 Temperature Pulse Rate 72 72 Respiratory Rate 14 18 Blood Pressure 133/66 Pulse Oximetry 100 100 Oxygen Delivery Method 07/14/25 18:50 07/14/25 18:50 07/14/25 19:00 Temperature Pulse Rate 68 Respiratory Rate Blood Pressure 139/72 137/73 Pulse Oximetry 100 Oxygen Delivery Method 07/14/25 19:00 07/14/25 19:09 07/14/25 19:10 Temperature Pulse Rate 69 75 Respiratory Rate 21 Blood Pressure 139/73 Pulse Oximetry 100 100 Oxygen Delivery Method 07/14/25 19:10 07/14/25 19:20 07/14/25 19:20 Temperature Pulse Rate 74 72 Respiratory Rate 14 18 Blood Pressure 131/75 Pulse Oximetry 100 100 Oxygen Delivery Method 07/14/25 19:30 07/14/25 19:30 07/14/25 19:40 Temperature Pulse Rate 67 Respiratory Rate 14 Blood Pressure 133/72 137/76 Pulse Oximetry 100 Oxygen Delivery Method 07/14/25 19:40 07/14/25 19:50 07/14/25 19:50 Temperature Pulse Rate 71 67 Respiratory Rate 15 12 Blood Pressure 132/65 Pulse Oximetry 100 100 Oxygen Delivery Method 07/14/25 20:00 07/14/25 20:00 07/14/25 20:10 Temperature Pulse Rate 73 Respiratory Rate Blood Pressure 145/73 H 134/72 Pulse Oximetry 100 Oxygen Delivery Method 07/14/25 20:10 07/14/25 20:20 07/14/25 20:20 Temperature Pulse Rate 75 72 Respiratory Rate 13 13 Blood Pressure 132/73 Pulse Oximetry 99 100 Oxygen Delivery Method 07/14/25 20:33 Temperature Pulse Rate 76 Respiratory Rate 19 Blood Pressure Pulse Oximetry 95 Oxygen Delivery Method MDM - Chest Pain Lab Data Attestation: I reviewed the patient's lab results. Lab results narrative: White blood cell count 4700, hemoglobin 14.8, platelets 165,000. Glucose 112. BUN 20 with creatinine 0 point 7 5. Serum CO2 26 normal. Potassium 3.3 slightly low. Sodium 139 normal. Slight AST elevation, other liver functions normal. Lipase normal. Troponin negative/unmeasurable. 07/14/25 17:39 07/14/25 17:39 Labs: Lab Results 07/14/25 07/14/25 Range/Units 17:39 19:45 WBC 4.7 (4.5-11.0) X10^3/uL RBC 4.59 (4.0-5.2) X10^6/uL Hgb 14.8 (12.0-16.0) g/dL Hct 41.9 (36-46) % MCV 91.4 (80-100) fL MCH 32.2 (26-34) PG MCHC 35.2 (30-36) % RDW 12.7 (11.6-14.8) % Plt Count 165 (150-400) X10^3/uL Neut % (Auto) 54.5 (50-75) % Lymph % (Auto) 32.0 (25-40) % Cloud % (Auto) 8.4 (3-14) % Eos % (Auto) 4.0 (2-4) % Baso % (Auto) 1.1 (0-2) % Neut # (Auto) 2600 (7914-6080) /uL Lymph # (Auto) 1500 (8963-5040) /uL Cloud # (Auto) 400 (0-900) /uL Eos # (Auto) 200 (0-450) /uL Baso # (Auto) 100 (0-100) /uL PT 11.9 (9.4-12.5) SECONDS INR 1.1 (0.9-1.3) APTT 31 (25.1-36.5) SECONDS Sodium 139 (137-145) mmol/L Potassium 3.3 L (3.4-5.1) mmol/L Chloride 104 (98-107) mmol/L Carbon Dioxide 26 (22-32) mmol/L BUN 20 H (7-17) mg/dL Creatinine 0.75 (0.52-1.04) mg/dL Estimated GFR > 60 (>60) mL/min BUN/Creatinine Ratio 26.7 H (6-22) Glucose 112 H (70-99) mg/dL Calcium 9.5 (8.4-10.2) mg/dL Magnesium 1.9 (1.6-2.3) mg/dL Total Bilirubin 0.9 (0.2-1.3) mg/dL AST 105 H (14-36) IU/L ALT 67 H (<35) IU/L Alkaline Phosphatase 96 (38-126) U/L Total Creatine Kinase 39 (30-135) U/L Troponin I < 0.012 < 0.012 (0.01-0.034) ng/mL NT-Pro-B Natriuret Pep < 20 (<125) pg/mL Total Protein 7.3 (6.3-8.2) g/dL Albumin 4.6 (3.5-5.0) g/dL Globulin 2.7 (1.7-4.1) g/dL Albumin/Globulin Ratio 1.7 (1.0-2.8) Lipase 167 (23-300) U/L Imaging Data CT angiogram chest: Radiologist's Impression: [place] [address] CT Scan Report Signed Patient: Felicia Valdez MR#: [id number] : 1965 Acct:[id number] Age/Sex: 59 / F Date of Service: 07/14/25 Loc: ED Accession Number: [id number] Procedure: CT angio chest PE protocol Ordering Provider: Britton Elise MD PROCEDURE: CT ANGIO CHEST PE PROTOCOL INDICATIONS: Chest pain, radiating in the back TECHNIQUE: After the administration of intravenous contrast, 2 mm thick sections acquired from the pulmonary apices to the posterior costophrenic angles. 3-dimensional maximum intensity projection (MIP) coronal and sagittal reformats were then acquired through the thorax. For radiation dose reduction, the following was used: automated exposure control, adjustment of mA and/or kV according to patient size. COMPARISON: None. FINDINGS: Image quality: Diagnostic. Pulmonary arteries: Pulmonary arteries are normal in size, and demonstrate no intraluminal filling defects to suggest central pulmonary embolism. Lower Neck: No enlarged lymph nodes. Thyroid: No thyroid nodules which require sonographic follow up, per consensus guidelines. Axillae: No enlarged lymph nodes. Chest Wall: Unremarkable. Bones: No aggressive appearing bony lesions. Lungs and Pleura: No pneumothorax or pleural effusions. Dependent atelectasis in posterior aspect of bilateral lower lobes are seen. No consolidation or suspicious nodules. Heart: Heart size is normal. No pericardial effusion. Thoracic Vessels: No aortic aneurysm. Mediastinum and Shannan: No enlarged lymph nodes. Esophagus: No wall thickening. Small hiatal hernia. Upper Abdomen: Visualized upper abdomen solid organs and bowel loops appear normal. IMPRESSION: 1. No pulmonary embolus. 2. No thoracic aortic aneurysm or gross dissection. 3. No mediastinal or hilar lymphadenopathy. 4. Bibasilar dependent atelectasis. No focal infiltrate, pleural effusion or pneumothorax. Dictated by: Hema Askew M.D. on 07/14/2025 at 20:58 Approved by: Hema Askew M.D. on 07/14/2025 at 21:05 CT scan - abdomen/pelvis: Radiologist's Impression: [place] [address] CT Scan Report Signed Patient: Felicia Valdez MR#: [id number] : 1965 Acct:[id number] Age/Sex: 59 / F Date of Service: 07/14/25 Loc: ED Accession Number: [id number] Procedure: CT abdomen pelvis w con Ordering Provider: Britton Elise MD PROCEDURE: CT ABDOMEN PELVIS W CON INDICATIONS: Chest/epigastric pain, radiating backwards TECHNIQUE: After the administration of intravenous contrast, axial sections acquired from the lung bases to the pubic symphysis. Coronal and sagittal reformats were performed. For radiation dose reduction, the following was used: automated exposure control, adjustment of mA and/or kV according to patient size. COMPARISON: None. FINDINGS: Image quality: Excellent. Lower Chest: No significant findings. ABDOMEN: Liver: No solid mass. Gallbladder: Distended. No gallbladder wall thickening or calcified gallstones. Biliary ducts: No biliary dilation. Pancreas: Mild intrahepatic biliary ductal dilatation and prominence of common bile duct measures up to 7 mm in diameter series 3 image 42. No calcified stone within the biliary ducts are seen. Spleen: Size is within normal limits. Adrenal Glands: No adrenal nodules. Kidneys and Ureters: No hydronephrosis. No solid mass. No complex renal cystic lesion which requires follow up. Stomach and Bowel: There is no bowel obstruction. No gastric or small bowel wall thickening. No colonic wall thickening. Appendix is not visualized. No focal inflammatory changes are seen in right lower quadrant abdomen. Mild sigmoid diverticulosis without CT evidence of acute diverticulitis. No abscess collection. Peritoneum: No abnormal intraperitoneal fluid. No free air. Ventral Wall: No significant ventral hernia. Abdominal Nodes: No retroperitoneal or mesenteric adenopathy by size criteria. Vessels: Aorta and inferior vena cava are normal in size. PELVIS: Pelvic Organs: Bulky appearing uterus with heterogeneous enhancement suggestive of multiple uterine fibroids. No abnormality is seen in bilateral adnexa. Bladder: No bladder wall thickening, accounting for underdistention. Pelvic Nodes: No enlarged lymph nodes. Miscellaneous: No inguinal hernias are seen. Bones: No aggressive osseous abnormality. IMPRESSION: 1. Nonspecific borderline intra and extrahepatic biliary ductal dilatation. No calcified choledocholithiasis. 2. Mildly distended gallbladder without calcified gallstones or gallbladder wall thickening. 3. No bowel obstruction or abnormal bowel wall thickening. No secondary CT signs of acute appendicitis. Mild sigmoid diverticulosis without CT evidence of acute diverticulitis. 4. No obstructing renal stones or hydronephrosis. 5. Bulky appearing uterus and suggestion of multiple uterine fibroids. Dictated by: Hema Askew M.D. on 07/14/2025 at 21:05 Approved by: Hema Askew M.D. on 07/14/2025 at 21:09 ECG Data Attestation: I personally reviewed and interpreted this ECG as follows: Interpretation: 1740, normal sinus rhythm with rate of 80, no obvious ST segment elevation or depression changes. AZ 180, QRS 80, QTC 449. MDM Narrative Medical decision making narrative: 59year old female lower central chest pain radiating straight backward, no known CAD, HEART score=4, no epigastric or upper abdominal tenderness. DDx consider ACS, PUD, gastritis, biliary colic, cholecystitis, symptomatic cholelithiasis, choledocholithiasis, pancreatitis, aortic dissection/aneurysm, PE, muscular, other. EKG without obvious ishcemic changes, sinus rhythm. Chest x-ray, no acute changes. See radiology report. Lab data: White blood cell count 4700, hemoglobin 14.8, platelets 165,000. Glucose 112. BUN 20 with creatinine 0 point 7 5. Serum CO2 26 normal. Potassium 3.3 slightly low. Sodium 139 normal. Slight AST elevation, other liver functions normal. Lipase normal. CT angiogram negative for PE, no aortic syndrome identified, no pneumonias identified. See radiology report. CT abdomen and pelvis, shows distended gallbladder without obvious stones. No acute changes otherwise. See radiology report. Ultrasound right upper quadrant abdomen. Impressions: ?Cholelithiasis with trace amount of pericholecystic fluid. Early acute cholecystitis can not be entirely excluded. Clinical correlation follow up as recommended. No significant biliary ductal dilatation. Hepatic steatosis. ? See radiology report. 2329, case discussed with surgery local [facility] on-call Dr. Garcia, who believes patient may have symptomatic cholelithiasis, without tenderness then clinically doubt acute cholecystitis at this time but could be very early, would discharge home, does recommend consultation with [facility] surgery in close follow-up. Oral maalox, oral aspirin. Symptoms had been improving prior to antacid. On repeat abdominal examination patient without Bogata sign again, no discomofort RUQ abdominal exam with light then deep palpation. WBC 4700 only, nonobstructing liver functions pattern with normal lipase. Repeat troponin also negative/unmeasurable. Clinically doubt acute cholecystitis at this time. Seems less likely ACS, low Heart Score, negative serial troponins. Case discussed with patient/family, advised to avoid fatty foods and dairy products, follow up with surgery in clinic in 2 days Wednesday or early this week. Consier taking OTC omeprazole antacid. Consider taking baby aspirin daily. Might need later EGD. Further cardiac testing as an outpatient for now. Given contact info also for local manager of corporate communications office Dr Rice. Return precautions discussed. They expressed understanding, their questions answered. Discharge Plan Departure Patient Disposition: Home Clinical Impression: Chest pain, Gallstones Activity Restrictions/Additional Instructions: Chest pain of unclear etiology. EKG and serial blood tests not suggestive of heart attack at this time. CT angiogram of the chest showed no blood clots to the lungs or pneumonia or acute chest findings. CT scan of the abdomen and pelvis was suspicious for distended gallbladder, and incidentally did show multiple uterine fibroids. Ultrasound of the right upper quadrant abdomen showed stones within the gallbladder, there was some suspicious of slight thickening and maybe a little bit of fluid, consider acute cholecystitis. However on examination initial and repeat deeper palpation of the abdomen you did not seem to have any discomfort, so clinically does not seem to fit in with acute cholecystitis at this moment. Case was discussed with general surgery Dr. Garcia, who thought it would be prudent to consult with General surgery in clinic early this week. Avoid fatty foods, and dairy products, which we would likely stimulate the gallbladder. You might need further cardiac evaluation as an outpatient as well, consider discussion with your regular doctor about seeing Cardiology in follow up, once your gallbladder issue is sorted out. Consider using [id number] omeprazole antacid while awaiting further consultations. Return to this/nearest emergency department for any change worsening symptoms or any concerns prior. Prescriptions: No Action acetaminophen [Tylenol] 325 mg capsule 650 mg PO QID PRN (Reason: pain) Qty: 60 0RF ibuprofen 200 mg capsule 200 mg PO Q6H PRN (Reason: pain) Qty: 60 0RF Referrals: Gibran Tate MD [Physician, General Surgery] Amena Bower ARNP [Primary Care Provider, Family Practice] Stand Alone Forms: Patient Portal/API
[2025-07-14 18:12] LABS: NT-proBNP (BNP-Adult 18+) < 20 pg/mL (<125); Troponin I < 0.012 ng/mL (0.01-0.034)
[2025-07-14] MEDS: MAG HYDROX/ALUM/SIMETH 30 ML UDC PO (20:12)
[2025-07-14 20:13] LABS: Troponin I < 0.012 ng/mL (0.01-0.034)
--- NOTE | 2025-07-14 20:14 | DI.CT.S_ITS ---
PROCEDURE: CT ANGIO CHEST PE PROTOCOL INDICATIONS: Chest pain, radiating in the back TECHNIQUE: After the administration of intravenous contrast, 2 mm thick sections acquired from the pulmonary apices to the posterior costophrenic angles. 3-dimensional maximum intensity projection (MIP) coronal and sagittal reformats were then acquired through the thorax. For radiation dose reduction, the following was used: automated exposure control, adjustment of mA and/or kV according to patient size. COMPARISON: None. FINDINGS: Image quality: Diagnostic. Pulmonary arteries: Pulmonary arteries are normal in size, and demonstrate no intraluminal filling defects to suggest central pulmonary embolism. Lower Neck: No enlarged lymph nodes. Thyroid: No thyroid nodules which require sonographic follow up, per consensus guidelines. Axillae: No enlarged lymph nodes. Chest Wall: Unremarkable. Bones: No aggressive appearing bony lesions. Lungs and Pleura: No pneumothorax or pleural effusions. Dependent atelectasis in posterior aspect of bilateral lower lobes are seen. No consolidation or suspicious nodules. Heart: Heart size is normal. No pericardial effusion. Thoracic Vessels: No aortic aneurysm. Mediastinum and Shannan: No enlarged lymph nodes. Esophagus: No wall thickening. Small hiatal hernia. Upper Abdomen: Visualized upper abdomen solid organs and bowel loops appear normal. IMPRESSION: 1. No pulmonary embolus. 2. No thoracic aortic aneurysm or gross dissection. 3. No mediastinal or hilar lymphadenopathy. 4. Bibasilar dependent atelectasis. No focal infiltrate, pleural effusion or pneumothorax. Dictated by: Hema Askew M.D. on 07/14/2025 at 20:58 Approved by: Hema Askew M.D. on 07/14/2025 at 21:05
--- NOTE | 2025-07-14 20:15 | DI.CT.S_ITS ---
PROCEDURE: CT ABDOMEN PELVIS W CON INDICATIONS: Chest/epigastric pain, radiating backwards TECHNIQUE: After the administration of intravenous contrast, axial sections acquired from the lung bases to the pubic symphysis. Coronal and sagittal reformats were performed. For radiation dose reduction, the following was used: automated exposure control, adjustment of mA and/or kV according to patient size. COMPARISON: None. FINDINGS: Image quality: Excellent. Lower Chest: No significant findings. ABDOMEN: Liver: No solid mass. Gallbladder: Distended. No gallbladder wall thickening or calcified gallstones. Biliary ducts: No biliary dilation. Pancreas: Mild intrahepatic biliary ductal dilatation and prominence of common bile duct measures up to 7 mm in diameter series 3 image 42. No calcified stone within the biliary ducts are seen. Spleen: Size is within normal limits. Adrenal Glands: No adrenal nodules. Kidneys and Ureters: No hydronephrosis. No solid mass. No complex renal cystic lesion which requires follow up. Stomach and Bowel: There is no bowel obstruction. No gastric or small bowel wall thickening. No colonic wall thickening. Appendix is not visualized. No focal inflammatory changes are seen in right lower quadrant abdomen. Mild sigmoid diverticulosis without CT evidence of acute diverticulitis. No abscess collection. Peritoneum: No abnormal intraperitoneal fluid. No free air. Ventral Wall: No significant ventral hernia. Abdominal Nodes: No retroperitoneal or mesenteric adenopathy by size criteria. Vessels: Aorta and inferior vena cava are normal in size. PELVIS: Pelvic Organs: Bulky appearing uterus with heterogeneous enhancement suggestive of multiple uterine fibroids. No abnormality is seen in bilateral adnexa. Bladder: No bladder wall thickening, accounting for underdistention. Pelvic Nodes: No enlarged lymph nodes. Miscellaneous: No inguinal hernias are seen. Bones: No aggressive osseous abnormality. IMPRESSION: 1. Nonspecific borderline intra and extrahepatic biliary ductal dilatation. No calcified choledocholithiasis. 2. Mildly distended gallbladder without calcified gallstones or gallbladder wall thickening. 3. No bowel obstruction or abnormal bowel wall thickening. No secondary CT signs of acute appendicitis. Mild sigmoid diverticulosis without CT evidence of acute diverticulitis. 4. No obstructing renal stones or hydronephrosis. 5. Bulky appearing uterus and suggestion of multiple uterine fibroids. Dictated by: Hema Askew M.D. on 07/14/2025 at 21:05 Approved by: Hema Askew M.D. on 07/14/2025 at 21:09
[2025-07-14] MEDS: POTASSIUM CHLORIDE 20 MEQ/15 ML UDC 40 MEQ PO (20:50)
--- NOTE | 2025-07-14 21:30 | DI.US.S_ITS ---
PROCEDURE: US ABDOMEN LIMITED INDICATIONS: upper ab lower chest pain, distended GB on CT TECHNIQUE: Real-time scanning was performed of the abdominal and retroperitoneal organs, with image documentation. COMPARISON: None. FINDINGS: Liver: Visualized portion of liver shows increased liver parenchymal echotexture. Gallbladder: Multiple stones are seen in dependent portion of gallbladder lumen with through acoustic shadowing. 6 mm stone is noted near neck of gallbladder. There is small amount of pericholecystic fluid. No definite sonographic Valdez sign. No significant gallbladder wall thickening. Biliary ducts: Intrahepatic bile ducts are non-dilated. Extrahepatic bile duct caliber measures 6.6 mm. Normal is 6-7 mm or less in diameter, or 10 mm or less post-cholecystectomy. Pancreas: Visualized portions of the pancreas are sonographically normal. Miscellaneous: No free abdominal fluid. IMPRESSION: Cholelithiasis with trace amount of pericholecystic fluid. Early acute cholecystitis cannot be entirely excluded. Clinical correlation and follow-up is recommended. No significant biliary ductal dilatation. Hepatic steatosis. Dictated by: Hema Askew M.D. on 07/14/2025 at 22:40 Approved by: Hema Askew M.D. on 07/14/2025 at 22:41
== END 2025-07-14 23:57 | disposition home or self-care (01) ==
PROVIDERS: Family Medicine; Emergency Provider Emergency Medicine; PCP Internal Medicine
DX: K80.20 Calculus of gallbladder without cholecystitis without obstruction (principal); R07.9 Chest pain, unspecified; Z86.79 Personal history of other diseases of the circulatory system
CPT/HCPCS: 36415; 71045; 71275; 74177; 76705; 80053; 82550; 83690; 83735; 83880; 84484; 85025; 85610; 85730; 93005; 99284; Q9967

== ENCOUNTER → 2025-07-18 07:05 | Outpatient (CLI) | payer OTHER, SELFPAY ==
[2025-07-18 07:33] LABS: Add Manual Diff / Slide Review NO; Hematocrit 42.1 % (36-46); Hemoglobin 14.6 g/dL (12.0-16.0); Lymphocytes Absolute Auto 1000 /uL (1100-4500); Mean Corpuscular HGB Conc 34.8 % (30-36); Mean Corpuscular Hemoglobin 32.1 PG (26-34); Mean Corpuscular Volume 92.4 fL (80-100); Platelet Count 176 X10^3/uL (150-400)
[2025-07-18 07:44] LABS: Alanine Aminotransferase 329 IU/L (<35); Albumin 4.3 g/dL (3.5-5.0); Albumin Globulin Ratio 1.7 (1.0-2.8); Alkaline Phosphatase 106 U/L (38-126); Blood Urea Nitrogen 16 mg/dL (7-17); Calcium 9.4 mg/dL (8.4-10.2); Carbon Dioxide 26 mmol/L (22-32); Chloride 104 mmol/L (98-107); Estimated Glomerular Filt Rate > 60 mL/min (>60); Globulin 2.5 g/dL (1.7-4.1); Glucose 98 mg/dL (70-99); HEMOLYSIS < 15 (0-50); Potassium 4.2 mmol/L (3.4-5.1); Sodium 141 mmol/L (137-145); Total Protein 6.8 g/dL (6.3-8.2)
== END ==
PROVIDERS: PCP Registered Nurse; Referring Provider Surgery; Visit Provider Surgery
DX: K80.20 Calculus of gallbladder without cholecystitis without obstruction (principal)
CPT/HCPCS: 36415; 80053; 85025

== ENCOUNTER → 2025-08-21 07:02 | Outpatient (CLI) | payer OTHER, SELFPAY ==
--- NOTE | 2025-08-21 07:03 | DI.US.S_ITS ---
PROCEDURE: US PELVIC COMPLETE
== END ==
LOC: US 07:02
PROVIDERS: PCP Registered Nurse; Referring Provider Registered Nurse; Visit Provider Registered Nurse
DX: D25.1 Intramural leiomyoma of uterus (principal); R93.89 Abnormal findings on diagnostic imaging of other specified body structures; N88.8 Other specified noninflammatory disorders of cervix uteri
CPT/HCPCS: 76830; 76856

== ENCOUNTER 2025-08-29 11:40 | Day surgery (SDC) | payer OTHER, SELFPAY ==
[2025-08-15 12:12] VITALS: BMI 26.4
[2025-08-29] VITALS (9 sets, daily range): BP systolic 88–139; BP diastolic 42–79; PULSE 64–76; RESP 11–24; TEMP 36.2–37.1; O2SAT 89–99
--- NOTE | 2025-08-29 | DI.RAD.S_ITS ---
PROCEDURE: XR CHOLANGIOGRAM OPERATIVE INDICATIONS: Lap Radha with IOC COMPARISON: None. FINDINGS: Biliary ducts: The surgeon injected contrast into the biliary ducts after cannulation of the cystic duct stump. Visualized intra- and extrahepatic bile ducts are normal in caliber, without strictures. No intraluminal filling defects to suggest retained ductal stones or sludge. No evidence for iatrogenic ductal injury. Duodenum: Contrast flows promptly through the sphincter of Oddi into the duodenum, which appears normal in caliber. IMPRESSION: Normal operative cholangiogram. Dictated by: Horacio Staley M.D. on 08/30/2025 at 10:02 Approved by: Horacio Staley M.D. on 08/30/2025 at 10:03
--- NOTE | 2025-08-29 | PATH_ITS ---
[facility] Accession Number: [id number] No. of containers..01 Tissue . 01 Material submitted: . gallbladder - GALLBLADDER, CHOLECYSTECTOMY . 01 Diagnosis: GALLBLADDER, CHOLECYSTECTOMY: Mild chronic cholecystitis with cholelithiasis and mild cholesterolosis. No dysplasia or malignancy identified. [facility] 09/07/2025 1527 Local . 01 Electronically signed: . Darryl Cardenas MD, Pathologist NPI- [id number] . 01 Gross description: . Received in formalin with two patient identifiers, and gallbladder is a 7.5 x 3.8 x 3.0 cm intact gallbladder. The stapled cystic duct margin is inked blue. There is a 0.6 cm possible lymph node adjacent to the cystic duct. The serosa is green and smooth. The mucosa is green with focal yellow stippling and a uniform, 0.1 cm thick wall. The lumen contains green, viscous bile. There are two 0.3-0.6 cm yellow-brown nodular calculi. Die Storage Clerk sections with inked cystic duct margin, gallbladder wall, and entire possible lymph node are submitted in A1. ([id number]) /MRV 09/07/2025 1527 Local . 01 Pathologist provided ICD-10: K80.10 . 01 CPT . 939553 Specimen Comment: A courtesy copy of this report has been sent to [phone] Performed at: [address] [id number] MD Darryl Cardenas MD Phone: [phone]
--- NOTE | 2025-08-29 12:30 | P.HP_ITS ---
History of Present Illness History of Present Illness Date Patient Seen: 08/29/25 Time Patient Seen: 12:30 Chief complaint: Laparoscopic Cholecystectomy with IOC Narrative: Felicia is a 60-year-old woman with symptomatic cholelithiasis and mildly elevated liver enzymes. See the July note for details. [facility] Medical History (Updated 08/29/25 @ 12:31 by Gibran Tate MD) Gestational diabetes Colon polyps (02/09/14) History of heavy periods (2013) Chicken pox Measles Hayfever Surgical History (Updated 08/15/25 @ 12:12 by Chastity Paul RN) Hx of excision of mass (09/24/20) History of shoulder surgery (08/16/18) History of colonoscopy with polypectomy (02/09/14) Anesthesia Status post tubal ligation (2002) Family History Father Stroke Grandmother Age: 102 Type 2 diabetes mellitus Heart disease Brother No problems noted. Mother Diabetes mellitus Sister No problems noted. Social History marital status: household members: spouse and children occupational status: employed Smoking Status: Former smoker alcohol intake: current substance use type: does not use Meds Home Medications and Allergies Home Medications ?Medication ?Instructions ?Recorded ?Confirmed ?Type acetaminophen 325 mg capsule 650 mg (2 x 325 mg) PO QI D PRN 09/24/20 07/17/25 Rx (Tylenol) pain #60 caps ibuprofen 200 mg capsule 200 mg PO Q6H PRN pain #60 c aps 09/24/20 07/17/25 Rx Allergies Allergy/AdvReac Type Severity Reaction Status Date / Time silver (From [employer]ER[employer] Allergy Mild SKIN RASH Verified 07/17/25 15:47 MESH) AND IRRITATION Exam Const General: No acute distress Assessment & Plan Assessment and plan (1) Symptomatic cholelithiasis: Status: Acute Plan Laparoscopic cholecystectomy with intraoperative cholangiogram and possible common bile duct exploration. Time-Based Coding :: [TOTAL MINUTES] spent with patient and on the chart (including review of chart, obtaining history, exam, reviewing outside data, placing orders, documenting exam and treatment plan, and counseling patient) on [DATE]. [employer] Associate Document charge(s): No
[2025-08-29] MEDS: LACTATED RINGERS 1,000 ML 42 ML IV (13:12)
--- NOTE | 2025-08-29 13:49 | SUR.OPER ---
Supine on padded OR bed, head on pillow, right arm padded and tucked at side, left arm on armboard legs uncrossed, safety belt at thigh, tape over blanket over lower legs , feet on footboard
--- NOTE | 2025-08-29 14:27 | PM.OP.1 ---
Operative Date/Time/Diagnoses Date of procedure: 08/29/25 Time of procedure: 14:27 Pre-op diagnosis: Symptomatic cholelithiasis Post-op diagnosis: same Procedure & Clinicians Procedure: Laparoscopic cholecystectomy with intraoperative cholangiogram Same procedure(s) as scheduled: Yes Surgeon: Gibran Tate Assisted?: Yes [employer] Sewing Machine Operator: Isai Tom Anesthesia Type: General Operative Notes Findings: Normal cholangiogram with no filling defects Applied: none Estimated Blood Loss (mL): 5 Procedure in detail: The patient was given preoperative antibiotic. The patient was brought to the operating room, placed on the table in the supine position. General endotracheal anesthesia was induced. The abdomen was prepped and draped. A time-out was performed. We made a 1 cm infraumbilical incision. We dissected down to the base of the umbilical stalk using cautery. We grasped the umbilical stalk with a Beatriz clamp to elevate the abdominal wall. We scored the fascia in the midline with cautery 1 cm. We pierced the peritoneum with a Peon clamp. The Del port was placed and the abdomen was insufflated to 15 mmHg. A 5 mm 30 degree laparoscopic was inserted. There was no evidence of any injury from the entry. There were adhesions from the omentum to the anterior abdominal wall of the right upper quadrant. The subxiphoid port was placed under direct vision. The more medial of the 2 right abdominal ports were was able to be placed under direct vision. Adhesions were taken down under direct vision with the hook cautery to allow for the fourth and final port to be placed in the lateral mid right abdomen. The patient was then positioned in reverse Trendelenburg and the table was tilted to the left. The gallbladder was grasped at the dome and retracted cephalad. There were some adhesions of mesenteric tissue to the gallbladder serosa which were carefully dissected with cautery to allow full retraction of the gallbladder. We then dissected the cystic structures with a combination of hook cautery and blunt dissection. We obtained a critical view. Next, a cholangiogram was performed using the 6 Maltese ureteral catheter. There was good flow of contrast into the duodenum and liver with no obvious filling defects. The cystic duct-common duct junction was well visualized. We then placed hemoclips on the cystic duct and artery and divided the cystic duct and artery sharply between the clips. The gallbladder was then dissected off the liver and placed in a specimen retrieval bag. We irrigated the right upper quadrant and all the aspirate returned clear. We then removed the 5 mm ports under direct vision we removed the Del port. We then injected some local into the fascia and closed the fascia with [] interrupted 0 Vicryl sutures. The skin incisions were closed with 4 Monocryl and Steri-Strips were applied. Band-Aids were applied over the Steri-Strips. EBL: 10 mL Specimen: Gallbladder Complications: none Post-operative Condition: stable Disposition: PACU
[2025-08-29] MEDS: ACETAMINOPHEN IV 1,000 MG/100 ML VIAL 400 MG IV (14:56)
== END 2025-08-29 16:02 | disposition home or self-care (01) ==
PROVIDERS: PCP Registered Nurse; Referring Provider Surgery; Visit Provider Surgery
PROC: 0FT44ZZ Resection of Gallbladder, Percutaneous Endoscopic Approach (ICD-10-PCS; CPT 47563; principal; 2025-08-29 13:15)
DX: K80.10 Calculus of gallbladder with chronic cholecystitis without obstruction (principal); Z87.891 Personal history of nicotine dependence
CPT/HCPCS: 47563; 74300; J0131; J0165; J0689; J1100; J1885; J2250; J2405; J2704; J3010; J7120